=== PATIENT | male | born 2005 | race Caucasian/White ===

== ENCOUNTER 2025-02-12 04:13 | Emergency (ER) | payer BC, SELFPAY ==
[2025-02-12] VITALS (9 sets, daily range): BP systolic 85–140; BP diastolic 43–69; BMI 21.0
[2025-02-12] MEDS: NSS 1000 IV (04:30)
[2025-02-12] MEDS: ZOFRAN 4 MG IV (04:36)
--- NOTE | 2025-02-12 06:20 | ED.GENMED ---
History of Present Illness
General
Chief Complaint: Alcohol Problem
Source: patient
Exam Limitations: none
Time Seen by Provider: 02/12/25 06:08
History of Present Illness
History of Present Illness:
19-year-old male brought in by friends and family. He was noticed to be intoxicated and vomiting at home and mother concerned about his vomiting. They brought him in is sleeping bag. Patient has been arousable to stimuli but has been sleeping
since arrival. No vomiting here.
Phy Exam
Physical Exam
Physical Exam:
General: Well-appearing male sleeping no acute respiratory distress
HEENT: Normocephalic atraumatic
Heart: Regular rate and rhythm
Lungs: Clear no wheeze
Extremities no cyanosis
Neurologic: Moves to verbal stimuli and a gentle tap of the shoulder
Scores
Withdrawal Assessment of Alcohol
Withdrawal Assessment Completed?: Not applicable
Course
Orders/Labs/Results
Orders:
Orders
02/12/25 04:34
Ondansetron Injectable [Zofran] 4 mg .ROUTE .STK-MED ONE
02/12/25 04:35
Ondansetron Injectable [Zofran] 4 mg IV NOW STA
02/12/25 06:50
0.9% Sodium Chloride 1000 ml [Nss] 1,000 ml IV BOLUS
02/12/25 07:01
Urine Drug Abuse Screen Urgent
Date Specimen was Collected: 02/12/25
Time Specimen was Collected: 07:00
Abnormal Lab Results
02/12/25
07:01
U Marijuana (THC) Screen Positive H
(Negative)
Vital Signs
Initial and Last Documented VS:
Initial Vital Signs
Temp Pulse Resp Pulse Ox
97.3 F 66 18 100
02/12/25 04:17 02/12/25 04:17 02/12/25 04:17 02/12/25 04:17
Last Documented Vital Signs
Temp Pulse Resp BP Pulse Ox
97.3 F 66 18 108/50 96
02/12/25 04:17 02/12/25 04:17 02/12/25 04:17 02/12/25 10:00 02/12/25 10:15
MDM/Problems Addressed
Differential Diagnosis Includes:
Likely acute alcohol intoxication. Vital signs have been stable. Zofran and fluids have been given. Will continue to allow the patient to metabolize until he is more alert.
*Critical Care Note
Total Time (30-74mins, 75-104mins- exclusive of procedures): Not Applicable
Update Note
Update Note:
Patient's vital signs have remained stable. He has slept for several hours and is now awake and alert his mother accompanies him. He is tolerating oral fluids. No indication for any further intervention. Stable for discharge
ED Attending Note
-
Portions of this chart may have been created with voice recognition software.� Occasional wrong word or��sound alike� substitutions may have occurred due to the inherent limitations of voice recognition software.
Discharge Plan
Departure
Patient Disposition: Home (Routine Discharge)
Date of Disposition: 02/12/25
Time of Disposition: 10:57
Patient with high blood pressure during this ER visit?: No
Discharge Problem:
Alcohol intoxication
Prescriptions:
No Action
Unobtainable
0
Referrals:
UNKNOWN - PT DOES,NOT KNOW [Family Provider] -
Activity Restrictions/Additional Instructions:
Please return here for worsening symptoms. Follow-up with your doctor if needed
Interventions
Interventions:
*Risk Screen - Suicide Last Done: 02/12/25 04:17
*General Assessment Last Done: 02/12/25 04:17
*Neglect/Abuse Screening Last Done: 02/12/25 10:49
*ED- Fall Risk Assessment Last Done: 02/12/25 04:17
*ED COVID-19 Vaccine History Last Done: 02/12/25 04:17
ED- Neurological Assessment Last Done: 02/12/25 04:40
ED-Psychological Assessment Last Done: 02/12/25 04:58
Discharge Date and Time
Print Language: CAMEROONIAN
[2025-02-12 07:24] LABS: Amphetamines Negative (Negative); Barbiturates Negative (Negative); Benzodiazepines Negative (Negative); Buprenorphine Negative (Negative); Cocaine Negative (Negative); Marijuana Positive (Negative); Methadone Negative (Negative); Methamphetamines Negative (Negative); Opiates Negative (Negative); Phencyclidine Negative (Negative); Tricyclic Antidepressants Negative (Negative)
== END 2025-02-12 11:14 | disposition home or self-care (01) ==
LOC: EMR 04:13
PROVIDERS: Emergency Medicine; EMERGENCY PHYSICIAN Emergency Medicine
DX: F10.129 Alcohol abuse with intoxication, unspecified (principal); Y90.9 Presence of alcohol in blood, level not specified; R11.10 Vomiting, unspecified
CPT/HCPCS: 96374; 96361; 99284; 80306